=== PATIENT | male | born 1955 | race African-American/Black ===

== ENCOUNTER 2018-05-06 07:36 | Observation (INO) | payer OTHER ==
[2018-05-06] MEDS ORDERED: NS(*) 0.9% 1000 ML BAG 1,000 ML IV ONE (07:46)
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
[2018-05-06] MEDS ORDERED: DIPHTH/TETANUS/ACEL. PERTUSSIS IM ONE (07:50)
[2018-05-06] MEDS ORDERED: fentaNYL CITR 100 MCG/2 ML AMP IVP ONE (07:50)
[2018-05-06] MEDS ORDERED: IOPAMIDOL 76% 100 ML INFUS BTL 100 ML ONE (08:02)
[2018-05-06 08:10] LABS: PLATELET COUNT, AUTOMATED 231 K/uL (150-450)
[2018-05-06 09:04] LABS: INR 1.04
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
[2018-05-06] MEDS ORDERED: NAPR220C12 PO (09:30)
[2018-05-06] MEDS ORDERED: TRAM-420 PO (09:30)
[2018-05-06] MEDS ORDERED: KETOROLAC 30 MG/ML VIAL IVP ONE (10:30)
[2018-05-06] MEDS ORDERED: HYDROMORPHONE HCL 1 MG/ML SYRINGE IVP ONE (10:55)
[2018-05-06 11:59] VITALS: BP 155/94
[2018-05-06] MEDS ORDERED: ACETAMINOPHEN 325 MG TAB PO PRN (12:45)
[2018-05-06] MEDS ORDERED: FLUSH 10 ML SYR IVP PRN (12:45)
[2018-05-06] MEDS: DIAZEPAM 5 MG TAB PO PRN (13:14)
[2018-05-06] MEDS: NS(*) 0.9% 1000 ML BAG 1,000 ML IV PRN (13:15)
[2018-05-06] MEDS: HYDROmorphone HCL 2 MG/ML SDV IVP PRN ×2 (15:05→23:12)
[2018-05-06] MEDS: ONDANSETRON 4 MG/2 ML VIAL IVP PRN (16:28)
[2018-05-06 16:31] VITALS: BP 130/75
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
[2018-05-06 19:25] VITALS: BP 161/90
[2018-05-06 22:59] VITALS: BP 114/69
[2018-05-07 02:58] VITALS: BP 122/92
[2018-05-07] MEDS: NS(*) 0.9% 1000 ML BAG 1,000 ML IV PRN (06:14)
[2018-05-07] MEDS: DIAZEPAM 5 MG TAB PO PRN (08:00)
[2018-05-07 08:01] VITALS: BP 142/88
[2018-05-07] MEDS ORDERED: POLYETHYLENE GLYCOL 17 GM PKT PO PRN (08:30)
[2018-05-07] MEDS: DOCUSATE SODIUM 100 MG CAP PO SCH ×2 (10:00→20:36)
[2018-05-07 11:40] VITALS: BP 153/71
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
[2018-05-07] MEDS: ONDANSETRON 4 MG/2 ML VIAL IVP PRN (14:21)
[2018-05-07] MEDS: CYCLOBENZAPRINE HCL 10 MG TAB PO PRN ×2 (14:21→23:29)
[2018-05-07] MEDS ORDERED: ATOR20TA65 PO (15:50)
[2018-05-07] MEDS: LIDOCAINE 5% PATCH TP SCH (15:58)
[2018-05-07 16:12] VITALS: BP 152/73
[2018-05-07 20:02] VITALS: BP 137/77
[2018-05-07] MEDS ORDERED: PATCH REMOVAL 1 EA TP SCH (21:00)
[2018-05-07] MEDS ORDERED: ATORVASTATIN 10 MG TAB PO SCH (21:00)
[2018-05-07 23:16] VITALS: BP 147/76
[2018-05-07] MEDS: APAP/HYDROCODONE 325/5 TAB PO PRN (23:29)
[2018-05-08 03:13] VITALS: BP 147/84
[2018-05-08] MEDS: APAP/HYDROCODONE 325/5 TAB PO PRN (06:38)
[2018-05-08] MEDS ORDERED: CYCL10TA29 PO (08:42)
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
[2018-05-08] MEDS ORDERED: ACET-1966 PO (08:50)
[2018-05-08 09:00] VITALS: BP 165/97
[2018-05-08] MEDS: CYCLOBENZAPRINE HCL 10 MG TAB PO PRN (09:09)
[2018-05-08] MEDS: DOCUSATE SODIUM 100 MG CAP PO SCH (09:09)
[2018-05-08] MEDS: LIDOCAINE 5% PATCH TP SCH (09:10)
[2018-05-09] MEDS ORDERED: INFLUENZA VIRUS VAC 0.5ML SYR IM ONLY ONE (09:00)
== END 2018-05-08 12:00 | disposition home or self-care (01) ==
LOC: ER 09:29 → INTOOBSV 11:15 → MED 11:15
PROVIDERS: ADMIT Internal Medicine; ATTEND Internal Medicine
DX: M54.2 Cervicalgia (principal); S00.572A Other superficial bite of oral cavity, initial encounter; E78.5 Hyperlipidemia, unspecified; R03.0 Elevated blood-pressure reading, without diagnosis of hypertension; M54.5 Low back pain; R07.89 Other chest pain; M25.512 Pain in left shoulder; M25.511 Pain in right shoulder; V58.6XXA Passenger in pick-up truck or van injured in noncollision transport accident in traffic accident, initial encounter; Y93.84 Activity, sleeping; Y92.411 Interstate highway as the place of occurrence of the external cause; Y99.8 Other external cause status; Z23 Encounter for immunization
CPT/HCPCS: 36415; 70450; 71260; 72125; 74177; 80320; 81001; 83605; 83690; 85025; 85610; 85730; 90471; 90715; 96361; 96374; 96375; 99285; G0378; J1170; J2405; J3010; J7030; L0120; Q9967; 82040; 82247; 82310; 82374; 82435; 82565; 82947; 84075; 84132; 84155; 84295; 84450; 84460; 84520

== ENCOUNTER → 2018-05-06 | Outpatient (CLI) | payer OTHER ==
[~2018-05-06] MED LIST: ACET-1966 PO; ATOR20TA65 PO; CYCL10TA29 PO; NAPR220C12 PO; TRAM-420 PO
== END ==
LOC: AMB 07:01
PROVIDERS: ATTEND Nurse Practitioner
DX: R51 Headache (principal); M54.2 Cervicalgia; S00.01XA Abrasion of scalp, initial encounter; I10 Essential (primary) hypertension; R00.0 Tachycardia, unspecified; V69.88XA Occupant (driver) (passenger) of heavy transport vehicle injured in other specified transport accidents, initial encounter
CPT/HCPCS: A0425; A0427